=== PATIENT | female | born 1975 | race Two or more races ===

== ENCOUNTER 2024-09-19 14:44 | Emergency (ER) | payer MEDICAID, SELFPAY ==
[2024-09-19 15:31] VITALS: BP 151/90; PULSE 115; RESP 18; TEMP 37.4; O2SAT 98; BMI 28.2
--- NOTE | 2024-09-19 16:18 | PD.EDRME ---
Rapid Medical Screening Exam RME Arrival date/time: 09/19/24 14:44 This is a 49-year-old female that comes in with complaints of GI bleeding. Patient states that she has had this problem before it comes and goes. Patient was seen at [facility] for this problem previously and was not given anything per patient patient describes some lower abdominal cramping. Patient denies any fever, nausea, vomiting, diarrhea. Patient reports history of diabetes and in the past. I have greeted and performed a focused initial assessment of this patient. Initial appropriate labs ordered at this time. A comprehensive ED assessment and evaluation of the patient and analysis of all test and completion of medical decision making process will be conducted by additional ED provider. Chief Complaint: GI Bleed Time Seen by Provider: 09/19/24 16:11 Vital signs: Vital Signs Temperature 99.3 F 09/19/24 15:31 Pulse Rate 115 H 09/19/24 15:31 Respiratory Rate 18 09/19/24 15:31 Blood Pressure 151/90 H 09/19/24 15:31 Pulse Oximetry (%) 98 09/19/24 15:31 Oxygen Delivery Method Room Air 09/19/24 15:31
[2024-09-19 17:20] LABS: Collection Type, Urine Voided; RBC,Urine 0 /hpf (0-3)
[2024-09-19 17:54] LABS: Bacteria,Urine Rare; Bilirubin,Urine Negative (Negative); Blood,Urine Trace (Negative); Budding Yeast,Urine Present; Clarity,Urine Clear (Clear/Hazy); Color,Urine Lt-Yellow (Lt Yel-Yel); Culture Indicated,Urine Not Indicated; Glucose, Urine 4+ (Negative); Ketones,Urine Trace (Negative); Leukocyte Esterase,Urine Positive (Negative); Nitrite,Urine Negative (Negative); Protein,Urine Negative (Neg - Trace); Specific Gravity,Urine 1.039 (1.001-1.035); Squamous Epithelial Cell,Urine 3 /hpf (0-5); Urobilinogen,Urine Negative mg/dL (0.0-1.0); WBC,Urine 5 /hpf (0-5)
[2024-09-19 18:04] LABS: Amphetamine/Methamp Scrn,U Negative (Negative); Barbiturate Screen,Urine Negative (Negative); Benzodiazepines Screen,Urine Negative (Negative); Benzoylecgonine Screen, Ur Negative (Negative); Fentanyl Screen,Urine Negative (Negative); Opiate Screen,Urine Negative (Negative); THC Screen,Urine Negative (Negative)
--- NOTE | 2024-09-19 19:59 | PC.NURSE ---
NO ANSWER MULTIPLE TIMES ON DAY SHIFT FOR LAB
--- NOTE | 2024-09-19 20:00 | PC.NURSE ---
PTS NAME CALLED AGAIN AND SHE ANSWERED, LAB CALLED AND IS COMING TO DRAW HER
[2024-09-19 21:02] LABS: Basophils % (Auto) 0 % (0-2.5); Eosinophils # (Auto) 0.1 Thou/mm3 (0.0-0.5); Eosinophils % (Auto) 1 % (0-10); Hematocrit 37.3 % (36.0-46.0); Hemoglobin 12.3 g/dL (12.0-16.0); Immature Granulocytes % (Auto) 0 % (0-0); Immature Granulocytes Auto 0.01 Thou/mm3 (0.00-0.00); Lymphocytes # (Auto) 2.6 Thou/mm3 (1.0-4.8); Lymphocytes % (Auto) 47 % (10-50); Mean Corpuscular Hemoglobin 28.8 pg (25.0-35.0); Mean Corpuscular Volume 87 fL (80-100); Monocytes # (Auto) 0.6 Thou/mm3 (0.0-0.8); Monocytes % (Auto) 10 % (0-12); Neutrophils # (Auto) 2.3 Thou/mm3 (1.8-7.7); Neutrophils % (Auto) 42 % (37-80); Nucleated Red Blood Cell % 0 /100 WBC (0); Platelet Count 251 Thou/mm3 (140-440); RDW Standard Deviation 42.3 fL (36.4-46.3); Red Blood Count 4.27 Miln/mm3 (4.00-5.20); White Blood Count 5.6 Thou/mm3 (3.6-11.0)
[2024-09-19 21:20] LABS: Prothrombin Time 10.9 Seconds (9.0-12.2)
[2024-09-19 21:28] LABS: Alanine Aminotransferase 18 U/L (10-49); Albumin, Serum 4.5 gm/dL (3.5-5.0); Anion Gap 8 (7-16); Aspartate Amino Transferase 17 U/L (0-34); BUN/Creatinine Ratio 23 Ratio (12-20); Bilirubin,Total 0.4 mg/dL (0.3-1.2); Blood Urea Nitrogen 14 mg/dL (9-23); Calcium 9.5 mg/dL (8.3-10.6); Calcium (Corrected) 9.5 mg/dL (8.5-10.1); Carbon Dioxide 24.9 mMol/L (20.0-31.0); Chloride 101 mMol/L (98-107); Creatinine (Component) 0.6 mg/dL (0.6-1.3); Estimated Creatinine Clearance 81.5 mL/min (>60); Globulin 3.8 gm/dL (2.3-3.5); Glucose 299 mg/dL (74-106); Osmolality,Calculated 279 (275-295); Sodium 134 mMol/L (136-145); Total Protein 8.3 gm/dL (5.7-8.2); eGFR > 60 See Note
[2024-09-19 21:29] LABS: Albumin/Globulin Ratio 1.2 (1.2-2.2); Alkaline Phosphatase 136 U/L (46-116); Lipase 30 U/L (12-53)
--- NOTE | 2024-09-19 22:00 | EDNOTE_ITS ---
ED GI Bleed RME/HPI General Chief complaint: GI Bleed Stated complaint: RECTAL BLEEDING Time Seen by Provider: 09/19/24 16:11 Arrival date/time: 09/19/24 14:44 RME / HPI RME / HPI Narrative: 09/19/24 14:44 This is a 49-year-old female that comes in with complaints of GI bleeding. Patient states that she has had this problem before it comes and goes. Patient was seen at [facility] for this problem previously and was not given an ything per patient patient describes some lower abdominal cramping. Patient denies any fever, nausea, vomiting, diarrhea. Patient reports history of diabetes and in the past. I have greeted and performed a focused initial assessment of this patient. Initial appropriate labs ordered at this time. A comprehensive ED assessment and evaluation of the patient and analysis of all test and completion of medical decision making process will be conducted by additional ED provider. ----- This section includes all my notes and documentations, including HPI, PE, and ED course. Dom Campbell MD HPI: 49yo female presents to the ED for a chief complaint of rectal bleeding. Patient states she's been leaking mucus and blood from her rectum when she goes to the restroom. Patient denies any abdominal pain, constipation, fever, chills, nausea, vomiting or any other associated symptoms. No further complaints reported. ROS: All negative except as documented in HPI. Physical Exam: General: Alert and oriented. No acute distress when remaining still. Eyes: Conjunctivae and lids clear. ENT: No nasal congestion. Neck: Supple. Heart: RRR. Lungs: No respiratory distress. Good air movement. No rhonchi, wheezing, rales. Abdomen: Soft and nontender. Skin: Warm and dry. Neuro: Alert and oriented X 3. I reviewed all diagnostic test results. Blood tests and urine tests unremarkable. At this point, diagnoses include rectal bleeding, no emergency. Recommended more outpatient GI workup. Based on my best medical judgment, made decision no further evaluation or treatment indicated at this time. Patient understands and agrees to the discharge instructions customized and printed, see below. Discharge Instructions from Dr. Campbell printed for you: 1. Your evaluation today, including blood tests and urine tests are all normal. There is no emergency today. 2. See a private doctor on 09/20/2024 for recheck and further care. To make sure there is no serious intra-abdominal condition, ask for help with more investigation not available here in the ER. Such as EGD or scoping the stomach, colonoscopy or scoping the colon, and referral to see electrician [facility] [employer]. 3. Seek immediate medical care with worsening or with any concerns. Dom Campbell MD Related Data Allergies Allergy/AdvReac Type Severity Reaction Status Date / Time No Known Allergies Allergy Verified 09/19/24 14:50 Review of Systems Review of Systems Systems Reviewed: All systems reviewed, normal except as documented Past Medical History Social History SMOKING STATUS: Never smoker ED Exam Narrative Physical exam: As noted in HPI. Course Quality Measures none Orders Category Date Time Status Occult Blood,Stool (Nursing) NOW Care 09/19/24 16:17 Active CBC Stat Lab 09/19/24 20:17 Completed Comprehensive Metabolic Panel Stat Lab 09/19/24 20:17 Completed Drug Screen,Urine Stat Lab 09/19/24 17:07 Completed Lipase Stat Lab 09/19/24 20:17 Completed PT [Prothrombin Time with INR] Stat Lab 09/19/24 20:17 Completed Urinalysis, C/S if Indicated Stat Lab 09/19/24 17:07 Completed Vital Signs Vital signs: Vital Signs Temperature 99.3 F 09/19/24 15:31 Pulse Rate 115 H 09/19/24 15:31 Respiratory Rate 18 09/19/24 15:31 Blood Pressure 151/90 H 09/19/24 15:31 Pulse Oximetry (%) 98 09/19/24 15:31 Oxygen Delivery Method Room Air 09/19/24 15:31 GI Bleed MDM Narrative MDM Narrative:: Scribe Attestation: 09/19/24 Marie Andrew am scribing for and in the presence of Dr. Campbell. Patient data External records reviewed:: [facility] previous records (Per chart review, patient has no previous ED visits or admissions to this facility.) Clinical information provided by:: patient Social determinants that could affect healthcare access:: none Patient has the following chronic illnesses:: DM How is presenting disease/condition affected by chronic disease/condition?: uneffected by Evaluation data The following diagnostics were reviewed and interpreted by me:: lab results Lab and/or radiology exams considered but not ordered:: none Interpretation Summary: Labs are within normal limits. Medications / Prescriptions Medications or Prescriptions considered but not ordered:: none Medication administrations:: none Consultations Consultation(s) initiated? (list below): No Diagnosis GI bleed differential diagnosis: hemorrhoids, Lower gastrointestinal hemorrhage, hematochezia and anal fissure Most likely diagnosis given after review of the tests above:: rectal bleeding due to diarrhea Admission Indicated Admission indicated?: not indicated Explain why admission is indicated or not indicated:: Admission criteria not met Admission Request Was there a request for admission?: No Disposition Plan Disposition Plan: Discharge Discharge Attestation Discharge Attestation: The patient and all family members were given an opportunity to ask questions and understood the discharge instructions. Discharge instructions specifically effects, indications for sooner follow up or return to the emergency department, and the expected course of current diagnosis. Patient condition: Stable Discharge Plan Plan Patient Disposition: HOME (Self Care) Prescriptions/Referrals Referrals: No Primary/Family,Physician [Primary Care Provider] - In 1 week Problem List Clinical Impression: Rectal bleeding Patient/Caregiver Discharge Instructions Discharge Activity: activity as tolerated Education Materials: ED Lower GI Bleeding (Stable) Additional Instructions: Discharge Instructions from Dr. Campbell printed for you: 1. Your evaluation today, including blood tests and urine tests are all normal. There is no emergency today. 2. See a private doctor on 09/20/2024 for recheck and further care. To make sure there is no serious intra-abdominal condition, ask for help with more investigation not available here in the ER. Such as EGD or scoping the stomach, colonoscopy or scoping the colon, and referral to see electrician [facility] [employer]. 3. Seek immediate medical care with worsening or with any concerns. Instrucciones de rip del Dr. Campbell impresas para usted: 1. Pollard evaluaci?n de hoy, incluidos los an?lisis de kristopher y orina, son normales. No hay ninguna emergencia hoy. 2. Visite a un m?dico privado el 20/09/2024 para volver a realizar un control y recibir m?s atenci?n. Para asegurarse de que no haya rose afecci?n intraabdominal grave, solicite ayuda con m?s investigaciones que no est?n disponibles aqu? en la ne de emergencias, hima EGD o endoscopia del est?carli, colonoscopia o endoscopia del colon y derivaci?n a un gastroenter?logo. 3. Busque atenci?n m?dica inmediata si empeora o tiene alguna inquietud. Print Language: Albanian Stand Alone Forms: Priti Award Info., Patient Portal Info Letter
== END 2024-09-19 22:30 | disposition home or self-care (01) ==
PROVIDERS: Nurse Practitioner Family; Emergency Provider Emergency Medicine
DX: K62.5 Hemorrhage of anus and rectum (principal)
CPT/HCPCS: 36415; 80053; 80307; 81001; 83690; 85025; 85610; 99283